=== PATIENT | male | born 1975 | race Caucasian/White ===

== ENCOUNTER → 2019-09-28 | Day surgery (SDC) | payer BC ==
[~2019-09-28] MED LIST: AMBIEN10 MG PO; FENTANYL CITRATE/PF 100MCG/2 ML INJ ONE; LIDOCAINE HCL 2% LOCAL INJ 5 ML SDV VIAL INJ ONE; LITHIUM CARBON300 M2 PO; MIDAZOLAM HCL 2 MG/2 ML VIAL ONE; OXCARBAZEPINE300 MG PO; PROPOFOL IV EMULSION 10 MG/ML 50 ML VIAL ONE; SERTRALINE HCL50 MG PO
[2019-09-28 11:49] VITALS: BP 126/87
--- NOTE | 2019-09-28 19:05 | Operative Report ---
DATE OF PROCEDURE: 09/28/2019 SURGEON: Rajesh Crouch MD PROCEDURE PERFORMED: Esophagogastroduodenoscopy and colonoscopy. PREOP MEDICATIONS: Consisted of IV sedation DESCRIPTION OF PROCEDURES: First procedure was EGD: Using Olympus AREN, videogastroscope was inserted into the patient's oropharynx, advanced to hypopharynx, down to the esophagus. The mucosa present in the esophagus was normal until we reached the GE junction. Right above the GE junction, there was mild irritation, reflecting a reflux esophagitis. Biopsies were obtained. There was a small hiatal hernia present from 40 to 41 cm. The stomach was entered and insufflated with air. The mucosal pattern in the cardia, fundus, body, and antrum of gastritis but, no ulcerations. Biopsies were obtained in the fundus and the antrum looking for H. pylori infection. The duodenum was visualized and at the first portion of duodenum, there was hypertrophy. This area was biopsied. Postbulbar duodenum was within normal limits. The endoscope was then withdrawn back up into the stomach, retroflexed through the GE junction, from below again, a small hiatal hernia was noted. This appeared to be a sliding-type hiatal hernia. The endoscope was then withdrawn back up into the esophagus, hypopharynx, oropharynx, and out of the patient's mouth and the procedure was ended. Second colonoscopy: After normal digital rectal examination, Olympus AREN video colonoscope was inserted into the patient's rectum and advanced without difficulty to the level of the cecum. The cecum was documented with photos. The endoscope was withdrawn now level back down to the rectum. In the mid descending colon, there was a 4 mm size benign polyp that was removed with hot biopsy forceps. Down into the sigmoid colon, there was another 4 mm size polyp, which was removed with the hot biopsy forceps. The colonoscope was then withdrawn from the patient's rectum and the procedure was ended. Rajesh Crouch MD SAF/MODL /[id number]
== END | disposition home or self-care (01) ==
LOC: OR 07:41
PROVIDERS: ATTEND Internal Medicine Gastroenterology
DX: K21.0 Gastro-esophageal reflux disease with esophagitis (principal); K63.5 Polyp of colon; K29.50 Unspecified chronic gastritis without bleeding; K31.89 Other diseases of stomach and duodenum; K44.9 Diaphragmatic hernia without obstruction or gangrene; E66.01 Morbid (severe) obesity due to excess calories; J45.909 Unspecified asthma, uncomplicated; G47.33 Obstructive sleep apnea (adult) (pediatric); F31.9 Bipolar disorder, unspecified; Z88.1 Allergy status to other antibiotic agents; Z01.810 Encounter for preprocedural cardiovascular examination; Z68.43 Body mass index [BMI] 50.0-59.9, adult
CPT/HCPCS: 43239; 45384; 93005; J2001; J2250; J2704; J3010